=== PATIENT | female | born 1975 | race Two or more races ===

== ENCOUNTER 2017-08-01 16:12 | Emergency (ER) | payer MEDICAID ==
[~2017-08-01] VITALS: Ht 154.9 cm; Wt 58.5 kg
[2017-08-01 17:25] VITALS: BP 137/93
[2017-08-01] MEDS ORDERED: SUMAtriptan SUCCINATE 6 MG/0.5 ML VL SC ONE (17:45)
== END 2017-08-01 18:06 | disposition home or self-care (01) ==
LOC: ER 16:15
DX: G43.909 Migraine, unspecified, not intractable, without status migrainosus (principal); F41.9 Anxiety disorder, unspecified; F32.9 Major depressive disorder, single episode, unspecified
CPT/HCPCS: 96372; 99283; J3030